=== PATIENT | female | born 1955 | race Two or more races ===

== ENCOUNTER 2023-06-24 06:00 | Day surgery (SDC) | payer OTHER | END 2023-06-24 12:50 | disposition home or self-care (01) | LOC: AMB-ENDOS 06:00 | PROVIDERS: ATTEND Colon & Rectal Surgery | DX: K57.32 Diverticulitis of large intestine without perforation or abscess without bleeding (principal); K64.8 Other hemorrhoids; K55.1 Chronic vascular disorders of intestine; R19.04 Left lower quadrant abdominal swelling, mass and lump; R15.9 Full incontinence of feces; Z20.822 Contact with and (suspected) exposure to COVID-19; Z91.041 Radiographic dye allergy status ==

== ENCOUNTER 2023-12-16 06:40 | Day surgery (SDC) | payer OTHER ==
[2023-12-16] MEDS ORDERED: ONDANSETRON HCL 2 MG/ML VIAL IV ONE (12:30)
[2023-12-16] MEDS ORDERED: fentaNYL CITRATE 50 MCG/ML AMPUL IV PUSH ONE (12:30)
[2023-12-16] MEDS ORDERED: MIDAZOLAM HCL 2 MG/2 ML VIAL IV ONE (12:30)
[2023-12-16] MEDS ORDERED: DIPHENHYDRAMINE HCL 50 MG/ML VIAL 1ML IV ONE (12:30)
== END 2023-12-16 13:30 | disposition home or self-care (01) ==
LOC: AMB-ENDOS 06:40 → CIR.AMB 12-23 14:00
PROVIDERS: ATTEND Colon & Rectal Surgery
DX: K56.699 Other intestinal obstruction unspecified as to partial versus complete obstruction (principal); K57.30 Diverticulosis of large intestine without perforation or abscess without bleeding; Z91.041 Radiographic dye allergy status; K64.8 Other hemorrhoids